=== PATIENT | male | born 1995 | race Two or more races ===

== ENCOUNTER 2019-08-18 09:21 | Emergency (ER) | payer SELFPAY ==
[~2019-08-18] VITALS: Ht 160 cm; Wt 55.5 kg
[2019-08-18] MEDS ORDERED: ONDANSETRON ODT 8 MG ONE (09:47)
[2019-08-18] MEDS ORDERED: ONDANSETRON ODT 8 MG PO ONE (10:00)
--- NOTE | 2019-08-18 10:01 | NUR ---
PT HERE WITH C/O NAUSEA, VOMITTING, AND DIARRHEA STARTING THIS AM. PT AAO X 4, NAD, ROOM AIR, CALL LIGHT WITHIN REACH, DRESSED IN GOWN AND ATTACHED TO MONITOR. UA LABELLED AND SENT TO LAB. SIDERAIL X [address]
--- NOTE | 2019-08-18 10:16 | NUR ---
PT GIVEN WATER FOR PO CHALLENGE.
[2019-08-18 10:55] LABS: BASOPHILS # (AUTO) 0.04 x10^3/uL (0-0.1); BASOPHILS % (AUTO) 0 % (0-1); EOSINOPHILS # (AUTO) 0.02 x10^3/uL (0-0.4); EOSINOPHILS % (AUTO) 0 % (1-7); LYMPHOCYTES # (AUTO) 0.92 x10^3/uL (1-3.4); LYMPHOCYTES % (AUTO) 8 % (22-44); MD NO; MEAN CORPUSCULAR HEMOGLOBIN 23.2 pg (27.5-34.5); MEAN CORPUSCULAR HGB CONC 31.6 g/dL (33.2-36.2); MEAN CORPUSCULAR VOLUME 73.3 fL (81-97); MEAN PLATELET VOLUME 9.7 fL (7.4-10.4); MONOCYTES % (AUTO) 3 % (2-9); NEUTROPHILS # (AUTO) 10.51 x10^3/uL (1.8-6.8); NEUTROPHILS % (AUTO) 89 % (42-75); PLATELET COUNT 275 x10^3/uL (130-400); RED BLOOD COUNT 5.86 x10^6/uL (4.38-5.82); RED CELL DISTRIBUTION WIDTH 14.9 % (9.4-14.8)
[2019-08-18 11:06] LABS: ALANINE AMINOTRANSFERASE 22 U/L (12-78); ALBUMIN 4.5 g/dL (3.4-5.0); ANION GAP 9 mmol/L (5-15); CALCIUM 8.8 mg/dL (8.5-10.1); CHLORIDE 104 mmol/L (98-107); CREATININE 0.87 mg/dL (0.7-1.3)
[2019-08-18 11:08] LABS: ALKALINE PHOSPHATASE 48 U/L (45-117); BILIRUBIN,TOTAL 0.4 mg/dL (0.2-1.0); TOTAL PROTEIN 8.2 g/dL (6.4-8.2)
--- NOTE | 2019-08-18 12:00 | NUR ---
BREAK RN FOR PRIMARY RN JASON. RECEIVED REPORT, CARE ASSUMED. PT SITTING IN BED, RESTING COMFORTABLY. DENIES ANY PAIN OR NAUSEA "I'M FEELING BETTER, THEY SAID IF I WASN'T NAUSEOUS AND COULD KEEP WATER DOWN I COULD GO, CAN I GO? I'VE BEEN DRINKING AND I FEEL BETTER." DISCUSSED WITH ERP, AWARE. PT UP FOR RECHECK. VSS. DENIES NEED TO USE RESTROOM. CALL LIGHT IN REACH. FALL PRECAUTIONS IN PLACE. SIGNIFICANT OTHER AT BEDSIDE.
[2019-08-18 12:02] VITALS: BP 113/68
--- NOTE | 2019-08-18 12:13 | NUR ---
PT PASSED PO CHALLENGE.
--- NOTE | 2019-08-18 12:20 | NUR ---
BREAK RN. BEDSIDE REPORT AND CARE BACK TO PRIMARY RN JASON.
--- NOTE | 2019-08-18 12:41 | NUR ---
Patient/Caregiver given discharge instructions and they have confirmed that they understand the instructions. Patient ambulatory with steady gait.
== END 2019-08-18 12:57 | disposition home or self-care (01) ==
LOC: ED 12:38
DX: E86.0 Dehydration (principal); R11.2 Nausea with vomiting, unspecified; R19.7 Diarrhea, unspecified
CPT/HCPCS: 36415; 80053; 85025; 99283; Q0162

== ENCOUNTER 2020-01-24 11:35 | Emergency (ER) | payer MEDICAID ==
[~2020-01-24] VITALS: Ht 162.6 cm; Wt 51.8 kg
--- NOTE | 2020-01-24 12:57 | NUR ---
TASK RN. PT OK FOR D/C PER ERMD. PT VERBALIZED UNDERSTANDING OF D/C ORDERS.
[2020-01-24 12:58] VITALS: BP 125/67
== END 2020-01-24 13:01 | disposition home or self-care (01) ==
LOC: ED 12:57
DX: R22.0 Localized swelling, mass and lump, head (principal)
CPT/HCPCS: 99281

== ENCOUNTER 2020-07-17 11:56 | Emergency (ER) | payer MEDICAID ==
[~2020-07-17] VITALS: Ht 160 cm; Wt 51.8 kg
--- NOTE | 2020-07-17 12:49 | NUR ---
PT A&OX4, RESP EVEN & UNLABORED, SPEECH CLEAR, SKIN WNL. STATES HE DRANK ABOUT 1/2 [place] OF [place] YESTERDAY, STARTED VOMITING ABOUT 1900, SOME BLOOD TINGED EMESIS. C/O ABD PAIN, RT KIDNEY PAIN, DEHYDRATION. 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
[2020-07-17 12:53] LABS: BASOPHILS % (AUTO) 1 % (0-1); EOSINOPHILS % (AUTO) 0 % (1-7); LYMPHOCYTES % (AUTO) 12 % (22-44); MEAN CORPUSCULAR HEMOGLOBIN 22.8 pg (27.5-34.5); MEAN CORPUSCULAR HGB CONC 32.2 g/dL (33.2-36.2); MEAN PLATELET VOLUME 8.9 fL (7.4-10.4); MONOCYTES % (AUTO) 13 % (2-9); NEUTROPHILS % (AUTO) 74 % (42-75); PLATELET COUNT 280 x10^3/uL (130-400); RED BLOOD COUNT 5.98 x10^6/uL (4.38-5.82); RED CELL DISTRIBUTION WIDTH 14.6 % (9.4-14.8)
[2020-07-17 12:54] LABS: MD NO
[2020-07-17] MEDS ORDERED: SODIUM CHLORIDE 0.9% 1,000ML IVBOLUS ONE (13:00)
[2020-07-17] MEDS ORDERED: ONDANSETRON 2MG/ML, 2ML IVPush ONE (13:00)
[2020-07-17] MEDS ORDERED: HYDROmorphone 1 MG/ML, 1ML INJ IVPush PRN (13:00)
[2020-07-17] MEDS ORDERED: HYDROmorphone 1 MG/ML, 1ML INJ ONE (13:07)
[2020-07-17] MEDS ORDERED: ONDANSETRON 2MG/ML, 2ML ONE (13:07)
[2020-07-17 13:17] LABS: ALANINE AMINOTRANSFERASE 27 U/L (12-78); ALBUMIN 4.8 g/dL (3.4-5.0); ANION GAP 6 mmol/L (5-15); CALCIUM 10.2 mg/dL (8.5-10.1); CHLORIDE 99 mmol/L (98-107); CREATININE 1.34 mg/dL (0.7-1.3)
[2020-07-17 13:19] LABS: ALKALINE PHOSPHATASE 59 U/L (45-117); BILIRUBIN,TOTAL 1.3 mg/dL (0.2-1.0)
[2020-07-17] MEDS ORDERED: SODIUM CHLORIDE FLUSH 10ML SYR IVF ONE (13:30)
--- NOTE | 2020-07-17 13:57 | NUR ---
PT RESTING QUEITLY ON GURNEY WATCHING TV. PIV INITIATED 20G LT HAND. ZOFRAN AND DILAUDID GIVEN PER EMAR. SIDE RAIL UP X1, CALL LIGHT W/IN REACH, GIRLFRIEND IN ROOM.
--- NOTE | 2020-07-17 14:45 | NUR ---
PT STATES "I FEEL BETTER", REPORTS DECREASED NAUSEA, RATES PAIN AT 9/10. NS INFUSED. PT TO RADIOLOGY PER ADRYAN
[2020-07-17 16:00] VITALS: BP 105/60
--- NOTE | 2020-07-17 16:04 | NUR ---
PT SITTING QUIETLY ON GURNEY, WATCHING TV. STATES HE'S FEELING BETTER. RATES PAIN AT 8/10. DENIES NAUSEA.
== END 2020-07-17 16:31 | disposition home or self-care (01) ==
LOC: ED 12:20
DX: K29.20 Alcoholic gastritis without bleeding (principal); K22.6 Gastro-esophageal laceration-hemorrhage syndrome; Z87.891 Personal history of nicotine dependence
CPT/HCPCS: 36415; 74022; 80053; 83690; 85025; 96361; 96374; 96375; 99284; J1170; J2405; J7030